=== PATIENT | female | born 1970 | race African-American/Black ===

== ENCOUNTER 2018-11-23 23:29 | Inpatient (IN) | payer MEDICAID, OTHER ==
[2018-11-23] MEDS: MAGNESIUM SULFATE 2 GM/50 ML 50 ML IVPB (23:50)
[2018-11-23] MEDS: SOD CHLORIDE 0.9% 1,000 ML IV (23:50)
[2018-11-23] MEDS: METHYLPREDNISOLONE 125 MG INJ IV (23:50)
[2018-11-23 23:56] LABS: ADD MAN DIFF? NO
[2018-11-23] MEDS: IPRATROPIUM (NEB) 0.5 MG/2.5 ML AMP INH (23:56)
[2018-11-23] MEDS: LEVALBUTEROL (NEB) 1.25 MG/0.5 ML AMP INH (23:56)
[2018-11-23 23:58] LABS: BASOPHILS % 0.6 % (0.0-2.0); EOSINOPHILS # 0.4 10^3/ul (0.0-0.5); HEMATOCRIT 38.4 % (37.0-47.0); LYMPHOCYTES # 2.6 10^3/ul (0.8-2.9); LYMPHOCYTES % 36.8 % (15.0-51.0); MEAN CORPUSCULAR HEMOGLOBIN 30.3 pg (29.0-33.0); MEAN CORPUSCULAR HGB CONC 33.9 g/dl (32.0-37.0); MEAN CORPUSCULAR VOLUME 89.5 fl (82.0-101.0); MEAN PLATELET VOLUME 9.6 fl (7.4-10.4); MONOCYTE # 0.5 10^3/ul (0.3-0.9); MONOCYTES % 7.1 % (0.0-11.0); NEUTROPHIL # 3.6 10^3/ul (1.6-7.5); NEUTROPHILS % 50.2 % (39.0-77.0); PLATELET COUNT 292 10^3/UL (140-415); RED BLOOD COUNT 4.29 10^6/ul (4.20-5.40); RED CELL DISTRIBUTION WIDTH 13.4 % (11.5-14.5)
[2018-11-23 23:58] LABS: WHITE BLOOD COUNT 7.2 10^3/ul (4.8-10.8)
[2018-11-24 00:20] LABS: ANION GAP 10 (5-13); BLOOD UREA NITROGEN 11 mg/dl (7-20); CALCIUM 9.7 mg/dl (8.4-10.2); CARBON DIOXIDE 27 mmol/L (21-31); CHLORIDE 107 mmol/L (97-110); CREATININE 0.57 mg/dl (0.44-1.00); Estimated GFR > 60 mL/min (>60); GLUCOSE 94 mg/dl (70-220); POTASSIUM 3.2 mmol/L (3.5-5.1); SODIUM 144 mmol/L (135-144)
[2018-11-24] MEDS ORDERED: DOCUSATE SODIUM 100 MG CAP PO (02:30)
[2018-11-24] MEDS ORDERED: BISACODYL (EC) 5 MG TAB PO (02:30)
[2018-11-24] MEDS: IPRATROPIUM (NEB) 0.5 MG/2.5 ML AMP HHN ×4 (02:30→13:43)
[2018-11-24] MEDS: ALBUTEROL 0.083% (NEB) 2.5 MG/3 ML AMP HHN ×4 (02:30→13:43)
[2018-11-24] MEDS ORDERED: ONDANSETRON 4 MG INJ IV (02:30)
[2018-11-24] MEDS ORDERED: ALBUTEROL 0.083% (NEB) 2.5 MG/3 ML AMP HHN (02:30)
[2018-11-24] MEDS ORDERED: NACL 0.9% 3 ML SYG IV (02:30)
[2018-11-24] MEDS ORDERED: ACETAMINOPHEN 325 MG TAB PO (02:30)
[2018-11-24] MEDS: POTASSIUM CHLORIDE (SR) 20 MEQ TAB PO (02:35)
[2018-11-24] MEDS: FAMOTIDINE 20 MG TAB PO ×2 (05:06→08:52)
[2018-11-24 05:35] LABS: ADD MAN DIFF? NO
[2018-11-24 05:38] LABS: WHITE BLOOD COUNT 4.8 10^3/ul (4.8-10.8)
[2018-11-24 05:38] LABS: BASOPHILS % 0.4 % (0.0-2.0); EOSINOPHILS % 0.2 % (0.0-7.0); HEMATOCRIT 36.4 % (37.0-47.0); HEMOGLOBIN 12.5 g/dl (12.0-16.0); LYMPHOCYTES # 0.8 10^3/ul (0.8-2.9); LYMPHOCYTES % 17.3 % (15.0-51.0); MEAN CORPUSCULAR HEMOGLOBIN 30.3 pg (29.0-33.0); MEAN CORPUSCULAR HGB CONC 34.3 g/dl (32.0-37.0); MEAN CORPUSCULAR VOLUME 88.3 fl (82.0-101.0); MEAN PLATELET VOLUME 9.9 fl (7.4-10.4); MONOCYTE # 0.1 10^3/ul (0.3-0.9); MONOCYTES % 1.9 % (0.0-11.0); NEUTROPHIL # 3.8 10^3/ul (1.6-7.5); PLATELET COUNT 300 10^3/UL (140-415); RED BLOOD COUNT 4.12 10^6/ul (4.20-5.40); RED CELL DISTRIBUTION WIDTH 13.2 % (11.5-14.5)
[2018-11-24 06:00] LABS: ALANINE AMINOTRANSFERASE 18 IU/L (13-69); ALBUMIN 4.6 g/dl (3.3-4.9); ALBUMIN/GLOBULIN RATIO 1.35; ALKALINE PHOSPHATASE 49 IU/L (42-121); ANION GAP 10 (5-13); ASPARTATE AMINO TRANSFERASE 21 IU/L (15-46); BILIRUBIN,INDIRECT 0.5 mg/dl (0-1.1); BILIRUBIN,TOTAL 0.5 mg/dl (0.2-1.3); BLOOD UREA NITROGEN 11 mg/dl (7-20); CALCIUM 9.6 mg/dl (8.4-10.2); CARBON DIOXIDE 25 mmol/L (21-31); CHLORIDE 107 mmol/L (97-110); CHOL/HDL RATIO 2.7 RATIO; CHOLESTEROL 164 mg/dl (100-200); CREATININE 0.51 mg/dl (0.44-1.00); Estimated GFR > 60 mL/min (>60); GLUCOSE 116 mg/dl (70-220); HDL CHOLESTEROL 60 mg/dl (34-88); LDL CHOLESTEROL,CALCULATED 72 mg/dl; MAGNESIUM 2.1 mg/dl (1.7-2.5); SODIUM 142 mmol/L (135-144); TRIGLYCERIDES 161 mg/dl (0-149)
[2018-11-24] MEDS ORDERED: METHYLPREDNISOLONE 40 MG INJ IV (06:00)
[2018-11-24 06:29] LABS: THYROID STIMULATING HORMONE 0.788 MIU/L (0.465-4.680)
[2018-11-24 07:03] LABS: HEMOGLOBIN A1C 4.8 % (0-5.9)
[2018-11-24] MEDS: GABAPENTIN 400 MG CAP PO (08:52)
[2018-11-24] MEDS: predniSONE 20 MG TAB PO (08:53)
[2018-11-24] MEDS: AMLODIPINE 10 MG TAB PO (08:53)
[2018-11-24] MEDS: LISINOPRIL 5 MG TAB PO (08:53)
[2018-11-24] MEDS: HYDROCHLOROTHIAZIDE 25 MG TAB PO (08:54)
[2018-11-24] MEDS: NICOTINE (7 MG/24 HR) PATCH TRANSDERM (08:55)
[2018-11-24] MEDS: ENOXAPARIN 40 MG/0.4 ML SYG SC (08:55)
== END 2018-11-24 13:50 | disposition home or self-care (01) | DRG 202 ==
LOC: E/R 23:29 → 5EC 11-24 02:50
DX: J45.901 Unspecified asthma with (acute) exacerbation (principal); I69.951 Hemiplegia and hemiparesis following unspecified cerebrovascular disease affecting right dominant side; Z72.0 Tobacco use; I10 Essential (primary) hypertension
CPT/HCPCS: 71045; 80048; 80053; 80061; 82306; 83036; 83735; 84443; 85025; 94640; 94644; 94664; 96374; 96375; 99285-25